=== PATIENT | male | born 1970 | race Caucasian/White ===

== ENCOUNTER → 2016-07-31 | Outpatient (CLI) | payer OTHER ==
[~2016-07-31] MED LIST: ALPR1TAB2; AMLO2.5T2; CARI250T; CPR500T PO; HYDR-3702 PO; HYDR-3754 PO; LISI1POW; LSNP10T PO; METR500T17 PO; ONDA2VIA IV; PRED20TA PO
[2016-07-31 15:34] VITALS: BP 129/84
--- NOTE | 2016-07-31 15:34 | Urgent Care T Sheet Gen (E) ---
Intake General Temperature (Fahrenheit): 98.5 Pulse: 94 Blood Pressure Systolic: 129 Blood Pressure Diastolic: 84 Respirations: 18 SPO2: 98 Description of Symptoms Patient presents with 2 complaints: First, he notes a rash which started this Am and was noticed along the lower abdomen. Has spread to the arms and legs. States it is red and raised. Changes appearance. very itchy. No new soaps or detergents. No SOB Next, patient notes dysuria and incomplete voiding since last night. No fever. No LBP. No history of prostate issues. patient states his PSA was normal when last checked. History of Present Illness Allergies: Coded Allergies: No Known Drug Allergies (Unverified , 04/16/15) Home Meds Active Scripts Prednisone 20 Mg [id number] Mg PO DAILY #8 TAB Prov:PATRICK ESPINOZA 07/31/16 Ondansetron HCl (Zofran)4 Mg/2 Ml Soln4 Mg IV Q6H PRN NAUSEA/VOMITING #15 TAB Ref 0 Prov:DIAMOND FENG DO 04/17/15 Hydrocodone/Acetaminophen ([place] 5mg/325mg)1 Each Tablet1 Tab PO Q4H PRN PAIN # 15 TAB Ref 0 Prov:DIAMOND FENG DO 04/17/15 Metronidazole (Flagyl)500 Mg [id number] Mg PO Q12HR #14 TAB Ref 0 Prov:DIAMOND FENG DO 04/17/15 Ciprofloxacin HCl (Cipro)500 Mg [id number] Mg PO BID #14 TAB Ref 0 Prov:DIAMOND FENG DO 04/17/15 Reported Medications Lisinopril 10 Mg [id number] Mg PO DAILY 04/16/15 Carisoprodol (Soma)250 Mg Tablet 10/27/12 Amlodipine Besylate (Norvasc)2.5 Mg Tablet 02/25/12 Respiratory Constitutional Symptoms: No syptoms reported EENTM: No symptoms reported Respiratory: No symptoms reported Genitourinary: Dysuria Decreased output Skin: Rash All Other Systems Reviewed Remaining Systems: All other systems reviewed with negative findings Past Bzdcwve-[id number]-Jwmpfa Hx Patient's Social History Infectious Disease Exposure: No Recent foreign travel: No Surgeries/Hospitalizations Hospitalization/Surgery Hx: tracheostomy, left arm surgery Respiratory Respiratory History: None Cardiovascular Cardiovascular History: Hypertension Reproductive System Sexually Transmitted Diseases: No Genitouinary Genitourinary History: None Gastrointestinal GI/Endocrine History: Hiatal hernia, GERD, Diarrhea, Change in bowel habits Diabetes Diabetes: No HEENT Impaired Vision: None Hearing Impaired: None Integumentary Integumentary History: None Cancer History of Cancer?: No Psychosocial Behavior Disorders: Anxiety, Depression Blood Transfusions Hx of Blood transfusions: No Physical Exam Physical Exam General Appearance: WD/WN No apparent distress Respiratory Exam: Lungs clear Normal breath sounds Cardiovascular Exam: Regular rate, rhythm Back Exam: No CVA tenderness Skin Exam: Rash (wheals noted along the lower abdomen, forearms and upper legs. consistent with hives.) Progress/Orders Lab Results Labs Results: UA UA Lab Results ph 6.5 Specific [place] 1.000 Protein - Ketones - Blood - Nitrates - Leukocyte Esterase - Departure Urgent Care Impression Impression: Primary Impression: Hives Additional Impression: Dysuria Departure Disposition: HOME OR SELF-CARE Condition: Stable Referrals: Jonathon Chen MD (PCP) Additional Instructions: The patient's rash appears to be hives. Unsure the etiology. I have started him on Prednisone x 4 days. Also suggested he take either Benadryl or Zyrtec for itch Regarding his urinary symptoms, his UA was normal. Unsure the cause to his symptoms. Most likely it's just bladder irritation and should resolve in a few days. Patient states he has been pushing fluids, which I encouraged. If persists, he is to f/u with PCP Patient understands DC instructions. All questions were answered. Scripts Prednisone 20 Mg [id number] Mg PO DAILY #8 TAB Prov:PATRICK ESPINOZA 07/31/16 End of report . PATRICK ESPINOZA Jul 31, 2016 14:53
== END ==
LOC: MHUC 14:21
PROVIDERS: ATTEND Physician Assistant
DX: L50.8 Other urticaria (principal); R30.0 Dysuria
CPT/HCPCS: 81002; 99213